=== PATIENT | male | born 1980 | race Caucasian/White ===

== ENCOUNTER 2019-09-28 11:14 | Emergency (ER) | payer BC ==
[~2019-09-28] VITALS: Ht 177.8 cm; Wt 87.1 kg
[2019-09-28 12:14] LABS: ABSOLUTE NEUTROPHILS 5.1 thou/uL (1.4-8.2); BASOPHILS 0.4 % (0.0-2.0); HEMATOCRIT 49.6 % (42.0-52.0); HEMOGLOBIN 16.9 gm/dL (14.0-18.0); LYMPHOCYTES 13.4 % (24.0-44.0); MCHC 34.1 g/dL (28.0-37.0); MCV 96.9 fL (80.0-100.0); MONOCYTES 5.6 % (1.0-8.0); PLATELET COUNT 300 thou/uL (150-400); POLYS 79.6 % (36.0-66.0); RBC 5.12 mil/uL (4.50-6.00); RDW 13.5 % (10.5-14.5); WBC 6.4 thou/uL (4.0-11.0)
[2019-09-28 12:18] LABS: ANION GAP 9 mmol/L (7-16); BUN 9 mg/dL (7-18); CHLORIDE 97 mmol/L (98-107); CO2 28 mmol/L (21-32); CREATININE 1.1 mg/dL (0.7-1.3); GLUCOSE 95 mg/dL (74-106); POTASSIUM 3.6 mmol/L (3.5-5.1); SODIUM 134 mmol/L (136-145)
[2019-09-28 12:28] LABS: ALBUMIN 4.3 g/dL (3.4-5.0); DIRECT BILIRUBIN 0.2 mg/dL (<0.1-0.2); SGOT 30 U/L (15-37); SGPT 44 U/L (30-65); TOTAL BILIRUBIN 0.6 mg/dL (0.2-1.0); TOTAL PROTEIN 8.1 g/dL (6.4-8.2); TROPONIN-I <0.06 ng/mL (<0.06)
[2019-09-28 13:29] VITALS: BP 114/72
--- NOTE | 2019-09-28 15:39 | EKG ---
[facility] [place] [address] ELECTROCARDIOGRAM REPORT Name: PROSPER LUGO Kye Room #: DEP [facility]#: [id number] Admission: 09/28/19 Attend Phys: Discharge: 09/28/19 Date of : 84 Report #: [id number] THIS REPORT FOR: cc: CAMI - Jenny family physician/PCP CAMI - Jenny family physician/PCP Cedrick Mayo MD ~ THIS REPORT FOR: //name// [facility] ED Test Date: 2019-09-28 Test Time: 11:21:32 Pat Name: PROSPER LUGO Department: Room: Gender: Hat Sizer: [facility] : 1980 Requested By: Mckenzie Tidwell Order Number: [id number] MD: Cedrick Mayo Measurements Intervals [place] Rate: 58 P: 33 VA: 133 QRS: 97 QRSD: 106 T: 0 QT: 398 QTc: 391 Interpretive Statements Sinus rhythm Borderline right axis deviation No previous ECG available for comparison Electronically Signed On 09-28-2019 15:39:00 CDT by Cedrick Mayo [email or web address] <ELECTRONICALLY SIGNED> By: Cedrick Mayo MD 09/28/19 [id number] Cedrick Mayo MD /ALFRED
== END 2019-09-28 13:30 | disposition home or self-care (01) ==
LOC: ER 11:14
PROVIDERS: Emergency Medicine
DX: R07.89 Other chest pain (principal)